=== PATIENT | female | born 1980 | race Caucasian/White ===

== ENCOUNTER 2017-09-09 22:48 | Emergency (ER) | payer MEDICAID ==
[~2017-09-09] VITALS: Ht 167.6 cm; Wt 52.2 kg
[2017-09-09 22:55] VITALS: BP 114/79
[2017-09-09] MEDS ORDERED: NKM (22:58)
--- NOTE | 2017-09-09 23:34 | Emergency Room Report ---
History of Present Illness General Chief Complaint: Gastrointestinal Illness Source: Patient Present Illness HPI 37-year-old female walked in with one day of painless dark stool associated with dizziness at rest and with ambulation Ate liang liver last night Denies other new meds recently Eyes nausea, vomiting, diarrhea denies gaviota blood in stool States within the last 2 months was also at [facility] for similar had endoscopy which showed ulcer. She took medication, not sure what it was. Not sure she tested positive for hpyloi. Did not have colonoscopy. no Use NSAIDs, not heavy alcohol drinker. no Previous abdominal or pelvic surgery Allergies: Coded Allergies: No Known Allergies (Unverified , 09/09/17) Patient History Past Medical History: other - PUD? Past Surgical History: none Pertinent Family History: none Social History: Denies: smoking, alcohol use, drug use Last Menstrual Period: Aug Now: No Immunizations: UTD Reviewed Nursing Documentation: PMH: Agreed, PSxH: Agreed Nursing Documentation-PMH Hx Gastrointestinal Problems: Yes - ULCER Review of Systems All Other Systems: negative except mentioned in HPI Physical Exam Vital Signs Date Time Temp Pulse Resp B/P (MAP) Pulse Ox O2 Delivery O2 Flow Rate FiO2 09/09/17 22:51 97.9 72 16 114/79 97 Room Air 97.9 Sp02 EP Interpretation: reviewed, normal General Appearance: normal inspection, well appearing, no apparent distress, alert, GCS 15, non-toxic Head: normocephalic, atraumatic Eyes: bilateral eye PERRL, bilateral eye EOMI ENT: normal ENT inspection, hearing grossly normal, normal pharynx, no angioedema, normal voice, TMs + canals normal, uvula midline, moist mucus membranes Neck: normal inspection, full range of motion, supple, thyroid normal, no meningismus, no bony tend Respiratory: normal inspection, lungs clear, normal breath sounds, no rhonchi, no respiratory distress, no retraction, no accessory muscle use, no wheezing, speaking full sentences Cardiovascular #1: regular rate, rhythm, no edema, no JVD, normal capillary refill Gastrointestinal: normal inspection, normal bowel sounds, non tender, soft, no mass, no peritonitis, non-distended, no guarding, no hernia, no pulsatile mass Rectal: other - Done with RN Kera sandoval. No gaviota bleeding. Negative occult stool sample done by in Genitourinary: no CVA tenderness Musculoskeletal: normal inspection, back normal, normal range of motion, no calf tenderness, pelvis stable, Ruben's Sign negative Neurologic: normal inspection, alert, oriented x3, responsive, mental health clinician III-XII nml as tested, motor strength/tone normal, cerebellar normal, normal gait, speech normal Psychiatric: normal inspection, judgement/insight normal, mood/affect normal, no suicidal/homicidal ideation, no delusions Skin: normal inspection, normal color, no rash Lymphatic: normal inspection, no adenopathy Medical Decision Making Diagnostic Impression: Primary Impression: Melena Additional Impression: Dizziness ER Course VSS, afebrile. Not tachycardia, hypotensive. Labs: H&H stable. Fecal occult negative on ED testing No metabolic abnormals, BUN normal Reassured patient Feels better after IVF hydration Gave copy of labs Advised PMD followup for GI referral for endoscopy if symptoms recur ER course: Patient has remained stable during ED stay. Disposition: Patient is to be discharged to home. Patient is instructed to follow up with their primary care doctor within 5 days. Patient is instructed to follow up with *specialist within 3 days. Strict return precautions discussed with patient such as fever, chills, worsening/severe pain, nausea, vomiting, which may indicate severe illness. Patient verbalizes understanding and agrees with plan. Please note that this Emergency Department Report was dictated using [employer]awk[employer] and shoe laborer technology software, occasionally this can lead to erroneous entry secondary to interpretation by the dictation equipment Rhythm Strip Diag. Results EP Interpretation: yes Rate: 64 Rhythm: NSR, no PVC's, no ectopy Last Vital Signs Date Time Temp Pulse Resp B/P (MAP) Pulse Ox O2 Delivery O2 Flow Rate FiO2 09/09/17 22:55 97.9 79 16 114/79 97 Room Air 97.9 Status: improved Disposition: HOME, SELF-CARE Referrals: [facility],REFERRING (PCP) ANABELL HUSTON M.D. Sep 09, 2017 23:34
[2017-09-09 23:39] LABS: BASOPHILS % (AUTO) 1.1 % (0.0-2.0); EOSINOPHILS % (AUTO) 0.7 % (0.0-3.0); HEMATOCRIT 42.9 % (37.0-47.0); HEMOGLOBIN 14.5 G/DL (12.0-16.0); LYMPHOCYTES % (AUTO) 47.1 % (20.0-45.0); MEAN CORPUSCULAR VOLUME 90 FL (80-99); MONOCYTES % (AUTO) 8.4 % (1.0-10.0); NEUTROPHILS % (AUTO) 42.8 % (45.0-75.0); PLATELET COUNT 229 K/UL (150-450); RED BLOOD COUNT 4.76 M/UL (4.20-5.40); RED CELL DISTRIBUTION WIDTH 11.8 % (11.6-14.8); WHITE BLOOD COUNT 6.3 K/UL (4.8-10.8)
[2017-09-09 23:45] LABS: ANION GAP 7 mmol/L (5-15); BLOOD UREA NITROGEN 16 mg/dL (7-18); CALCIUM 9.4 MG/DL (8.5-10.1); CARBON DIOXIDE 29 MMOL/L (21-32); CHLORIDE 101 MMOL/L (98-107); CREATININE 0.7 MG/DL (0.55-1.30); INR 0.9 (0.9-1.1); POTASSIUM 3.5 MMOL/L (3.5-5.1); SODIUM 137 MMOL/L (136-145)
[2017-09-09 23:50] LABS: ALANINE AMINOTRANSFERASE 52 U/L (12-78); ALKALINE PHOSPHATASE 74 U/L (46-116); ASPARTATE AMINO TRANSFERASE 28 U/L (15-37); BILIRUBIN,TOTAL 0.2 MG/DL (0.2-1.0)
[2017-09-10 00:15] VITALS: BP_SYST 110; BP_SYST 114; BP_DIAS 65; BP_DIAS 79
== END 2017-09-10 00:15 | disposition home or self-care (01) ==
LOC: EMR 23:08
DX: K92.1 Melena (principal); R42 Dizziness and giddiness; Z87.11 Personal history of peptic ulcer disease
CPT/HCPCS: 36415; 80053; 82270; 85025; 85610; 86850; 86900; 86901; 96374; 99284

== ENCOUNTER 2018-07-23 20:21 | Inpatient (IN) | payer MEDICAID ==
[~2018-07-23] VITALS: Ht 167.6 cm; Wt 59.0 kg
[~2018-07-23 20:21] MED LIST: NKM
[2018-07-23 20:25] VITALS: BP 120/75
[2018-07-23] MEDS ORDERED: Morphine Sulfate 4mg/ml Inj (IV/IM USE ONLY) IVP ONE (20:30)
[2018-07-23] MEDS ORDERED: Pantoprazole Inj IVP ONE (20:30)
[2018-07-23] MEDS ORDERED: Isovue-300 100ml vial INJ PRN (20:30)
--- NOTE | 2018-07-23 20:30 | Emergency Room Report ---
History of Present Illness General Chief Complaint: Abdominal Pain Source: Patient Present Illness HPI 38-year-old female, presenting with abdominal pain for the last 3 days, also black stool. Patient says that she's had this in the past, and she was told it was a bacteria. She was followed up with the doctor at [facility]. No complaining of itching abdominal pain, the last 2 days, sharp, bilateral lower quadrants. Has no history of any surgeries in the past. No vomiting no fever Allergies: Coded Allergies: No Known Allergies (Unverified , 09/09/17) Patient History Past Medical History: see triage record Past Surgical History: none Pertinent Family History: none Last Menstrual Period: 06/26/18 Now: No Reviewed Nursing Documentation: PMH: Agreed; PSxH: Agreed Nursing Documentation-PMH Past Medical History: No Stated History Hx Gastrointestinal Problems: Yes - ULCER Review of Systems All Other Systems: negative except mentioned in HPI Physical Exam Vital Signs Date Time Temp Pulse Resp B/P (MAP) Pulse Ox O2 Delivery O2 Flow Rate FiO2 07/23/18 20:10 98.2 60 18 123/76 99 Room Air Sp02 EP Interpretation: reviewed, normal General Appearance: alert, GCS 15, non-toxic, moderate distress Head: normocephalic, atraumatic Eyes: bilateral eye normal inspection, bilateral eye PERRL, bilateral eye EOMI ENT: normal ENT inspection, normal pharynx, normal voice, moist mucus membranes Neck: normal inspection, full range of motion, supple Respiratory: normal inspection, lungs clear, normal breath sounds, no respiratory distress, no retraction, no wheezing, speaking full sentences, chest symmetrical Cardiovascular #1: normal inspection, regular rate, rhythm, no edema, normal capillary refill Cardiovascular #2: 2+ radial (R), 2+ radial (L) Gastrointestinal: other - Bilateral lower quadrant tenderness without guarding or rigidity Musculoskeletal: normal inspection, back normal, normal range of motion, non- tender Neurologic: normal inspection, alert, oriented x3, responsive, motor strength/ tone normal, sensory intact, normal gait, speech normal Psychiatric: normal inspection, judgement/insight normal, memory normal Skin: normal inspection, normal color, no rash, warm/dry, well hydrated, normal turgor Medical Decision Making ER Course 38-year-old female with abdominal pain, also black stool Differential Diagnosis: Gastritis, gastroenteritis, peptic ulcer disease, inflammatory bowel disease, infectious diarrhea Plan: Basic labs, ua, Protonix, zofran, IVF CT abdopelvis ER course: rectal exam: dark brown stool guiac positive Signed out pt to Dr Light 38-year-old female presenting with abdominal pain and black stool, has been here for melena in the past last September, reportedly has an ulcer and was H. pylori positive in the past Pt pending CT scan please follow for final disposition Please note that this Emergency Department Report was dictated using Dataium[employer] conduit layer technology software, occasionally this can lead to erroneous entry secondary to interpretation by the dictation equipment Laboratory Tests Test 07/23/18 20:25 White Blood Count 6.5 K/UL (4.8-10.8) Red Blood Count 4.52 M/UL (4.20-5.40) Hemoglobin 13.5 G/DL (12.0-16.0) Hematocrit 40.2 % (37.0-47.0) Mean Corpuscular Volume 89 FL (80-99) Mean Corpuscular Hemoglobin 29.9 PG (27.0-31.0) Mean Corpuscular Hemoglobin Concent 33.6 G/DL (32.0-36.0) Red Cell Distribution Width 11.2 % (11.6-14.8) L Platelet Count 202 K/UL (150-450) Mean Platelet Volume 7.9 FL (6.5-10.1) Neutrophils (%) (Auto) 57.0 % (45.0-75.0) Lymphocytes (%) (Auto) 32.5 % (20.0-45.0) Monocytes (%) (Auto) 9.4 % (1.0-10.0) Eosinophils (%) (Auto) 0.3 % (0.0-3.0) Basophils (%) (Auto) 0.8 % (0.0-2.0) Prothrombin Time 10.9 SEC (9.30-11.50) Prothrombin Time INR 1.0 (0.9-1.1) PTT 26 SEC (23-33) Sodium Level 137 MMOL/L (136-145) Potassium Level 3.4 MMOL/L (3.5-5.1) L Chloride Level 102 MMOL/L (98-107) Carbon Dioxide Level 23 MMOL/L (21-32) Anion Gap 12 mmol/L (5-15) Blood Urea Nitrogen 8 mg/dL (7-18) Creatinine 0.7 MG/DL (0.55-1.30) Estimate Glomerular Filtration Rate > 60 mL/min (>60) Glucose Level 89 MG/DL (74-106) Calcium Level 9.5 MG/DL (8.5-10.1) Total Bilirubin 0.3 MG/DL (0.2-1.0) Aspartate Amino Transferase (AST) 17 U/L (15-37) Alanine Aminotransferase (ALT) 17 U/L (12-78) Alkaline Phosphatase 55 U/L (46-116) Total Protein 7.6 G/DL (6.4-8.2) Albumin 3.7 G/DL (3.4-5.0) Globulin 3.9 g/dL Albumin/Globulin Ratio 0.9 (1.0-2.7) L Lipase 114 U/L (73-393) Last Vital Signs Date Time Temp Pulse Resp B/P (MAP) Pulse Ox O2 Delivery O2 Flow Rate FiO2 07/23/18 20:10 98.2 60 18 123/76 99 Room Air Aleyda Hamlin M.D. Jul 23, 2018 20:30
[2018-07-23 20:53] LABS: BASOPHILS % (AUTO) 0.8 % (0.0-2.0); EOSINOPHILS % (AUTO) 0.3 % (0.0-3.0); HEMATOCRIT 40.2 % (37.0-47.0); HEMOGLOBIN 13.5 G/DL (12.0-16.0); LYMPHOCYTES % (AUTO) 32.5 % (20.0-45.0); MEAN CORPUSCULAR VOLUME 89 FL (80-99); MONOCYTES % (AUTO) 9.4 % (1.0-10.0); PLATELET COUNT 202 K/UL (150-450); RED BLOOD COUNT 4.52 M/UL (4.20-5.40); RED CELL DISTRIBUTION WIDTH 11.2 % (11.6-14.8); WHITE BLOOD COUNT 6.5 K/UL (4.8-10.8)
[2018-07-23 21:05] LABS: ANION GAP 12 mmol/L (5-15); BLOOD UREA NITROGEN 8 mg/dL (7-18); CALCIUM 9.5 MG/DL (8.5-10.1); CARBON DIOXIDE 23 MMOL/L (21-32); CHLORIDE 102 MMOL/L (98-107); CREATININE 0.7 MG/DL (0.55-1.30); POTASSIUM 3.4 MMOL/L (3.5-5.1); SODIUM 137 MMOL/L (136-145)
[2018-07-23 21:09] LABS: ALANINE AMINOTRANSFERASE 17 U/L (12-78); ALBUMIN 3.7 G/DL (3.4-5.0); ALBUMIN/GLOBULIN RATIO 0.9 (1.0-2.7); ALKALINE PHOSPHATASE 55 U/L (46-116); ASPARTATE AMINO TRANSFERASE 17 U/L (15-37); BILIRUBIN,TOTAL 0.3 MG/DL (0.2-1.0)
--- NOTE | 2018-07-23 21:24 | NUR ---
ED Nurse Note: Received report from Patrick/ RN. Pt is A/O X4, Need urine sample and CT OF Abdomen.
--- NOTE | 2018-07-23 21:49 | NUR ---
ED Nurse Note: Urine sample sent to Lab.
[2018-07-23 21:58] LABS: APPEARANCE,URINE CLEAR; BILIRUBIN, URINE NEGATIVE (NEGATIVE); COLOR,URINE PALE YELLOW; GLUCOSE, URINE (UA) NEGATIVE (NEGATIVE); KETONES,URINE 4+ (NEGATIVE); LEUKOCYTE ESTERASE ,URINE 1+ (NEGATIVE); NITRITE,URINE NEGATIVE (NEGATIVE); PH,URINE 7 (4.5-8.0); PROTEIN,URINE NEGATIVE (NEGATIVE); UROBILINOGEN,URINE NORMAL MG/DL (0.0-1.0)
--- NOTE | 2018-07-23 22:08 | NUR ---
ED Nurse Note: Pt is sent down for CT.
--- NOTE | 2018-07-23 22:21 | NUR ---
ED Nurse Note: Pt return from CT.
--- NOTE | 2018-07-23 23:31 | Emergency Room Report ---
History of Present Illness General Chief Complaint: Abdominal Pain Source: Patient Present Illness Allergies: Coded Allergies: No Known Allergies (Unverified , 09/09/17) Patient History Last Menstrual Period: 06/26/18 Now: No Nursing Documentation-[facility] Past Medical History: No Stated History Hx Gastrointestinal Problems: Yes - ULCER Physical Exam Vital Signs Date Time Temp Pulse Resp B/P (MAP) Pulse Ox O2 Delivery O2 Flow Rate FiO2 07/23/18 20:10 98.2 60 18 123/76 99 Room Air Medical Decision Making Diagnostic Impression: Primary Impression: Abdominal pain ER Course Please refer to the initial note for the history exam and presentation Patient's blood work is at baseline levels patient CT is read as no acute pathology There was a 2.2 cm cyst on the left ovary Reviewing the workup and the findings with the patient she provides multiple Inputs including recent visits to [facility] with lower abdominal pain she reports that at the end of June she had taken some pills for ovulation Which had caused increased lower pelvic pain Patient reports that after taking medications she has now had increased epigastric pain Reports seeing her primary physician who did not prescribe her any medications Patient reports multiple episodes of epigastric pain which have not been resolved with [id number] medication At this time patient reports that she does not have anyone to take her home does not feel comfortable going home at this time, and therefore the patient continued with her inpatient Admission for further evaluation and final disposition Labs Test 07/23/18 20:25 07/23/18 21:50 White Blood Count 6.5 K/UL (4.8-10.8) Red Blood Count 4.52 M/UL (4.20-5.40) Hemoglobin 13.5 G/DL (12.0-16.0) Hematocrit 40.2 % (37.0-47.0) Mean Corpuscular Volume 89 FL (80-99) Mean Corpuscular Hemoglobin 29.9 PG (27.0-31.0) Mean Corpuscular Hemoglobin Concent 33.6 G/DL (32.0-36.0) Red Cell Distribution Width 11.2 % (11.6-14.8) Platelet Count 202 K/UL (150-450) Mean Platelet Volume 7.9 FL (6.5-10.1) Neutrophils (%) (Auto) 57.0 % (45.0-75.0) Lymphocytes (%) (Auto) 32.5 % (20.0-45.0) Monocytes (%) (Auto) 9.4 % (1.0-10.0) Eosinophils (%) (Auto) 0.3 % (0.0-3.0) Basophils (%) (Auto) 0.8 % (0.0-2.0) Prothrombin Time 10.9 SEC (9.30-11.50) Prothromb Time International Ratio 1.0 (0.9-1.1) Activated Partial Thromboplast Time 26 SEC (23-33) Sodium Level 137 MMOL/L (136-145) Potassium Level 3.4 MMOL/L (3.5-5.1) Chloride Level 102 MMOL/L (98-107) Carbon Dioxide Level 23 MMOL/L (21-32) Anion Gap 12 mmol/L (5-15) Blood Urea Nitrogen 8 mg/dL (7-18) Creatinine 0.7 MG/DL (0.55-1.30) Estimat Glomerular Filtration Rate > 60 mL/min (>60) Glucose Level 89 MG/DL (74-106) Calcium Level 9.5 MG/DL (8.5-10.1) Total Bilirubin 0.3 MG/DL (0.2-1.0) Aspartate Amino Transf (AST/SGOT) 17 U/L (15-37) Alanine Aminotransferase (ALT/SGPT) 17 U/L (12-78) Alkaline Phosphatase 55 U/L (46-116) Total Protein 7.6 G/DL (6.4-8.2) Albumin 3.7 G/DL (3.4-5.0) Globulin 3.9 g/dL Albumin/Globulin Ratio 0.9 (1.0-2.7) Lipase 114 U/L (73-393) Urine Color Pale yellow Urine Appearance Clear Urine pH 7 (4.5-8.0) Urine Specific [place] 1.005 (1.005-1.035) Urine Protein Negative (NEGATIVE) Urine Glucose (UA) Negative (NEGATIVE) Urine Ketones 4+ (NEGATIVE) Urine Blood Negative (NEGATIVE) Urine Nitrite Negative (NEGATIVE) Urine Bilirubin Negative (NEGATIVE) Urine Urobilinogen Normal MG/DL (0.0-1.0) Urine Leukocyte Esterase 1+ (NEGATIVE) Urine RBC 0-2 /HPF (0 - 2) Urine WBC 0-2 /HPF (0 - 2) Urine Squamous Epithelial Cells Few /LPF (NONE/OCC) Urine Bacteria Few /HPF (NONE) Urine HCG, Qualitative Negative (NEGATIVE) CT/MRI/US Diagnostic Results CT/MRI/US Diagnostic Results : Impression CT abdomen pelvis: 2.2 cm dominant follicle or small cyst left ovary no other acute pathology Last Vital Signs Date Time Temp Pulse Resp B/P (MAP) Pulse Ox O2 Delivery O2 Flow Rate FiO2 07/23/18 20:25 98.2 55 18 120/75 99 Room Air Status: improved Disposition: ADMITTED INPATIENT Condition: Serious Referrals: [facility],REFERR[facility] (PCP) Cristine Light DO Jul 23, 2018 23:30
[2018-07-24] MEDS ORDERED: LORazepam Inj 2mg/ml 1ml IV ONE
[2018-07-24 00:15] VITALS: BP 92/56
--- NOTE | 2018-07-24 00:15 | NUR ---
NURSE NOTES: Pt came up to unit via gurney w/belongings accounted for. Pt A&Ox4, VSS, and in no apparent distress at this time. IV site intact/asymptomatic; skin intact; and bowel sounds hyperactive on auscultation. Will review MD admission orders and continue to monitor.
--- NOTE | 2018-07-24 00:20 | NUR ---
TRANSFER TO FLOOR: Patient transferred to 3E/315 as ordered . Report given to Justice/RN . Belongings sent with Pt and re-checked with RN. Pt is A/O X4. VSS.
[2018-07-24] MEDS: 1/2NS w/KCl 20mEq 1000ml 1,000 ML IV SCH ×3 (01:22→21:23)
[2018-07-24 04:00] VITALS: BP 107/67
--- NOTE | 2018-07-24 07:08 | NUR ---
HAND-OFF: Report given to SATNAM Rocha.
--- NOTE | 2018-07-24 07:39 | NUR ---
NURSE NOTES: AWAKE/ALERT. PAIN SCALE 4/10. IN NO ACUTE DISTRESS.
[2018-07-24 08:00] VITALS: BP 104/61
[2018-07-24 08:06] LABS: BASOPHILS % (AUTO) 1.2 % (0.0-2.0); EOSINOPHILS % (AUTO) 0.9 % (0.0-3.0); HEMATOCRIT 37.3 % (37.0-47.0); HEMOGLOBIN 12.5 G/DL (12.0-16.0); LYMPHOCYTES % (AUTO) 47.9 % (20.0-45.0); MEAN CORPUSCULAR VOLUME 90 FL (80-99); MONOCYTES % (AUTO) 11.4 % (1.0-10.0); NEUTROPHILS % (AUTO) 38.7 % (45.0-75.0); PLATELET COUNT 174 K/UL (150-450); RED BLOOD COUNT 4.16 M/UL (4.20-5.40); RED CELL DISTRIBUTION WIDTH 11.3 % (11.6-14.8); WHITE BLOOD COUNT 4.6 K/UL (4.8-10.8)
[2018-07-24 08:37] LABS: ALANINE AMINOTRANSFERASE 16 U/L (12-78); ALBUMIN/GLOBULIN RATIO 0.9 (1.0-2.7); ALKALINE PHOSPHATASE 47 U/L (46-116); ANION GAP 6 mmol/L (5-15); ASPARTATE AMINO TRANSFERASE 14 U/L (15-37); BILIRUBIN,TOTAL 0.3 MG/DL (0.2-1.0); BLOOD UREA NITROGEN 7 mg/dL (7-18); CALCIUM 8.6 MG/DL (8.5-10.1); CARBON DIOXIDE 25 MMOL/L (21-32); CHLORIDE 108 MMOL/L (98-107); CREATININE 0.8 MG/DL (0.55-1.30); POTASSIUM 3.9 MMOL/L (3.5-5.1); SODIUM 139 MMOL/L (136-145)
--- NOTE | 2018-07-24 09:22 | Diagnostic Imaging Report ---
Indication: Abdominal pain Technique: Continuous helical transaxial imaging of the abdomen and pelvis was obtained from the lung bases to the pubic symphysis during intravenous contrast administration. Coronal 2-D reformats were also obtained. Study obtained in a Siemens sensation [address] Automatic Exposure Control was utilized. Total Dose length Product (DLP): 650.[address] Dose Index Volume (CTDIvol): 10.08,7.38 mGy Comparison: None Findings: There is mild small bowel dilatation of fluid-filled loops. Consider mild enteritis. There is a 2 cm left ovarian cyst present. The lung bases are clear. The liver, spleen and other solid organs appear normal. There is no hydronephrosis. Gallbladder is unremarkable. The appendix is normal. Pancreas is unremarkable. IMPRESSION: Possible mild enteritis. Correlate clinically. 2 cm left ovarian cyst. Normal appendix The CT scanner at [facility] is accredited by the [employer] and the scans are performed using dose optimization techniques as appropriate to a performed exam including Automatic Exposure control.
--- NOTE | 2018-07-24 11:06 | GI Initial Consult Note ---
History of Present Illness General Date patient seen: Jul 24, 2018 Time patient seen: 10:57 Reason for Hospitalization: Abdominal Pain Referring physician: MARCELLA BRYAN Reason for Consultation: ABDOMINAL PAIN Present Illness HPI 38-year-old female, presenting with abdominal pain for the last 3 days, also black stool. Patient says that she's had this in the past, and she was told it was a bacteria. She was followed up with the doctor at [facility]. No complaining of itching abdominal pain, the last 2 days, sharp, bilateral lower quadrants. Has no history of any surgeries in the past. No vomiting no fever GI consulted for abdominal pain. Pt seen, awake A&Ox4 c/o of severe abdominal pain 10/ x 4 days. Has epigastric, LLQ abdominal tenderness to palpation. Reported black stools. Denied diarrhea. Had N/V, denied any hematemesis or coffee grounds. Denied any recent travels or changes in dietary habits. Pt reported history of ulcer EGD in 2014 with H. Pylori positive s/p treatment. Utox negative. Labs reviewed unremarkable. Home Meds Reported Medications No Known Medications* (NKM - No Known Medications*) ., 0 ., 0 Refills 07/23/18 No Known Medications* (NKM - No Known Medications*) ., 0 ., 0 Refills 09/09/17 Med list reviewed/reconciled: Yes Allergies: Coded Allergies: No Known Allergies (Unverified , 09/09/17) Patient History History Provided By: Patient, Medical Record PMH Narrative Past Medical History: see triage record Past Surgical History: none Pertinent Family History: none Last Menstrual Period: 06/26/18 Now: No Reviewed Nursing Documentation: PMH: Agreed; PSxH: Agreed Past Medical History: No Stated History Hx Gastrointestinal Problems: Yes - ULCER Social History: Denies: smoking, alcohol use, drug use, other Review of Systems All Other Systems: negative except mentioned in HPI Physical Exam Vital Signs Date Time Temp Pulse Resp B/P (MAP) Pulse Ox O2 Delivery O2 Flow Rate FiO2 07/23/18 20:10 98.2 60 18 123/76 99 Room Air Sp02 EP Interpretation: reviewed, normal Labs Laboratory Tests Test 07/23/18 20:25 07/23/18 21:50 07/24/18 07:23 White Blood Count 6.5 K/UL (4.8-10.8) 4.6 K/UL (4.8-10.8) L Red Blood Count 4.52 M/UL (4.20-5.40) 4.16 M/UL (4.20-5.40) L Hemoglobin 13.5 G/DL (12.0-16.0) 12.5 G/DL (12.0-16.0) Hematocrit 40.2 % (37.0-47.0) 37.3 % (37.0-47.0) Mean Corpuscular Volume 89 FL (80-99) 90 FL (80-99) Mean Corpuscular Hemoglobin 29.9 PG (27.0-31.0) 30.0 PG (27.0-31.0) Mean Corpuscular Hemoglobin Concent 33.6 G/DL (32.0-36.0) 33.5 G/DL (32.0-36.0) Red Cell Distribution Width 11.2 % (11.6-14.8) L 11.3 % (11.6-14.8) L Platelet Count 202 K/UL (150-450) 174 K/UL (150-450) Mean Platelet Volume 7.9 FL (6.5-10.1) 9.2 FL (6.5-10.1) Neutrophils (%) (Auto) 57.0 % (45.0-75.0) 38.7 % (45.0-75.0) L Lymphocytes (%) (Auto) 32.5 % (20.0-45.0) 47.9 % (20.0-45.0) H Monocytes (%) (Auto) 9.4 % (1.0-10.0) 11.4 % (1.0-10.0) H Eosinophils (%) (Auto) 0.3 % (0.0-3.0) 0.9 % (0.0-3.0) Basophils (%) (Auto) 0.8 % (0.0-2.0) 1.2 % (0.0-2.0) Prothrombin Time 10.9 SEC (9.30-11.50) Prothromb Time International Ratio 1.0 (0.9-1.1) Activated Partial Thromboplast Time 26 SEC (23-33) Sodium Level 137 MMOL/L (136-145) 139 MMOL/L (136-145) Potassium Level 3.4 MMOL/L (3.5-5.1) L 3.9 MMOL/L (3.5-5.1) Chloride Level 102 MMOL/L (98-107) 108 MMOL/L (98-107) H Carbon Dioxide Level 23 MMOL/L (21-32) 25 MMOL/L (21-32) Anion Gap 12 mmol/L (5-15) 6 mmol/L (5-15) Blood Urea Nitrogen 8 mg/dL (7-18) 7 mg/dL (7-18) Creatinine 0.7 MG/DL (0.55-1.30) 0.8 MG/DL (0.55-1.30) Estimat Glomerular Filtration Rate > 60 mL/min (>60) > 60 mL/min (>60) Glucose Level 89 MG/DL (74-106) 78 MG/DL (74-106) Calcium Level 9.5 MG/DL (8.5-10.1) 8.6 MG/DL (8.5-10.1) Total Bilirubin 0.3 MG/DL (0.2-1.0) 0.3 MG/DL (0.2-1.0) Aspartate Amino Transf (AST/SGOT) 17 U/L (15-37) 14 U/L (15-37) L Alanine Aminotransferase (ALT/SGPT) 17 U/L (12-78) 16 U/L (12-78) Alkaline Phosphatase 55 U/L (46-116) 47 U/L (46-116) Total Protein 7.6 G/DL (6.4-8.2) 6.4 G/DL (6.4-8.2) Albumin 3.7 G/DL (3.4-5.0) 3.0 G/DL (3.4-5.0) L Globulin 3.9 g/dL 3.4 g/dL Albumin/Globulin Ratio 0.9 (1.0-2.7) L 0.9 (1.0-2.7) L Lipase 114 U/L (73-393) Urine Color Pale yellow Urine Appearance Clear Urine pH 7 (4.5-8.0) Urine Specific [place] 1.005 (1.005-1.035) Urine Protein Negative (NEGATIVE) Urine Glucose (UA) Negative (NEGATIVE) Urine Ketones 4+ (NEGATIVE) H Urine Blood Negative (NEGATIVE) Urine Nitrite Negative (NEGATIVE) Urine Bilirubin Negative (NEGATIVE) Urine Urobilinogen Normal MG/DL (0.0-1.0) Urine Leukocyte Esterase 1+ (NEGATIVE) H Urine RBC 0-2 /HPF (0 - 2) Urine WBC 0-2 /HPF (0 - 2) Urine Squamous Epithelial Cells Few /LPF (NONE/OCC) Urine Bacteria Few /HPF (NONE) Urine HCG, Qualitative Negative (NEGATIVE) Urine Opiates Screen Negative (NEGATIVE) Urine Barbiturates Screen Negative (NEGATIVE) Phencyclidine (PCP) Screen Negative (NEGATIVE) Urine Amphetamines Screen Negative (NEGATIVE) Urine Benzodiazepines Screen Negative (NEGATIVE) Urine Cocaine Screen Negative (NEGATIVE) Urine Marijuana (THC) Screen Negative (NEGATIVE) General Appearance: well appearing, no apparent distress, alert Head: normocephalic EENT: PERRL/EOMI, normal ENT inspection Neck: supple Respiratory: normal breath sounds, no respiratory distress Cardiovascular: normal rate Gastrointestinal: normal inspection, non tender, soft, normal bowel sounds, non -distended Rectal: deferred Genitourinary: no CVA tenderness Musculoskeletal: normal inspection, back normal Neurologic: normal inspection, alert, oriented x3, responsive Psychiatric: normal inspection, judgement/insight normal, memory normal Skin: normal inspection, normal color, no rash, warm/dry, palpation normal, well hydrated Lymphatic: normal inspection, no adenopathy Current Medications Current Medications Medications (Trade) Dose Ordered Sig/Jean Route PRN Reason Start Time Stop Time Status Last Admin Dose Admin Acetaminophen (Tylenol) 650 mg Q4H PRN ORAL For Pain 07/24/18 00:45 08/23/18 00:44 Al Hydroxide/Mg Hydroxide (Mylanta) 30 ml EVERY 4 HOURS PRN ORAL Abdominal cramps 07/24/18 00:45 08/23/18 00:44 Pantoprazole (Protonix) 40 mg ACBREAKFAST ORAL 07/24/18 06:30 08/23/18 06:29 07/24/18 06:11 Sodium 1,000 ml @ 75 mls/hr [id number] IV 07/24/18 00:45 08/23/18 00:44 07/24/18 01:22 GI: Plan Problems: (1) Ulcer (2) PUD (peptic ulcer disease) (3) Melena (4) Enteritis (5) Abdominal pain Plan EGD scheduled for today. maintain NPO + IVFs will follow with additional recommendations Discussed with Dr. Ordoñez. Thank you for this patient referral, we will follow. The patient was seen and examined at bedside and all new and available data was reviewed in the patients chart. I agree with the above findings, impression and plan. (Patient seen earlier today. Signature stamp does not reflect patient encounter time.). - MD Kendra JuaresDignity Health Mercy Gilbert Medical CenterEvgeny CONFIGURATION MANAGEMENT CONSULTANT Jul 24, 2018 11:06
[2018-07-24 12:00] VITALS: BP 99/83
--- NOTE | 2018-07-24 12:03 | Pre-Procedure Note/Attestation ---
Pre-Procedure Note/Attestation Complete Prior to Procedure Planned Procedure: not applicable Procedure Narrative: egd Indications for Procedure Pre-Operative Diagnosis: abd pain Attestation I attest that I discussed the nature of the procedure; its benefits; risks and complications; and alternatives (and the risks and benefits of such alternatives ), prior to the procedure, with the patient (or the patient's legal traffic representative). I attest that, if there was a reasonable possibility of needing a blood transfusion, the patient (or the patient's legal traffic representative) was given the [facility] standardized written summary, pursuant to the Damir Renita Blood Safety Act ([place] Health and Safety Code # 1645, as amended). I attest that I re-evaluated the patient just prior to the surgery and that there has been no change in the patient's H&P, except as documented below: Pernell Ordoñez MD Jul 24, 2018 12:03
[2018-07-24] MEDS: Morphine Sulfate 4mg/ml Inj (IV/IM USE ONLY) IVP PRN ×2 (14:50→23:49)
[2018-07-24 16:00] VITALS: BP 108/62
--- NOTE | 2018-07-24 16:13 | NUR ---
CASE MANAGEMENT: REVIEW 38/F BIBA FROM HOME CC: ABD PAIN SI: GI BLEED T 98.2 HR 54 RR 18 BP 120/75 SAT 96% ROOM AIR K 3.4 IS: PROTONIX IV X1 MORPHINE IV X1 ZOFRAN IV X1 ATIVAN IV X1 PEPCID IV X1 INTERQUAL CRITERIA MET: PATIENT ADMITTED TO MED/SURG UNIT 07/23/2018 DCP: PATIENT IS FROM HOME CASE MANAGEMENT: REVIEW SI: GI BLEED EGD 07/24 T 98.0 HR 54 RR 18 BP 92/56 SAT 96% ROOM AIR WBC 4.6 AST 14 IS: MORPHINE 2MG IV Q4HR PRN PROTONIX PO QD NS IVF @ 75ML/HR NPO MED/SURG STATUS DCP: PATIENT IS FROM HOME
--- NOTE | 2018-07-24 16:34 | Consultation ---
Consult Note Consult Note GYNECOLOGY CONSULT NOTE CC: Ovarian cyst HPI: Patient is a 38yo G0 who was admitted for abdominal pain. She took Clomid on Cycle day 2 (LMP 06/26) for 5 days however did not have intercourse after ovulation induction. Her pain began on 07/03 or 07/04, was severe at times, prompting her to go to the ER. She was seen at [facility] ED for lower abdominal pain on 07/13/18, was diagnosed with and treated for cervicitis (CTX and Azithro) and discharged home. Patient reports that her lower abdominal pain improved (currently 4-11/15) but she then developed upper GI pain and was admitted here for treatment and evaluation. During evaluation an incidental left ovarian cyst was noted on imaging, and I have been consulted regarding this finding. Of note, her ultrasound at [facility] on 07/13 was normal. She denies fevers, reports some nausea, no vomiting. PMH: - Hx of ulcer diagnosed in 2014 PSH: - Denies Meds: - None Allergies: - NKDA OBHx: - G0 GYNHx: - LMP 06/26, menses regular - No hx abnl Pap, cysts, fibroids, or STI SocHx: - Lives alone, has boyfriend. Owns a [employer]. Denies T/E/D FamHx: - Father with GA, living - Paternal grandmother of breast CA at 55yo, diagnosed at 50 Vitals: Tmax 98.1F, HR 53-99, BP 99-107/61-83, RR 18, O2 98% RA Exam: Gen: NAD, A&O x4 HEENT: MMM, OP clear Neck: No thyromegaly CV: No tachycardia Pulm: No increased work of breathing Abd: Soft, generalized tenderness that is non-specific, although she appears to be most tender on the right of her umbilicus and in her epigastric area. No lower abdominal tenderness. No rebound but voluntary guarding present and is distractable. Pelvic: No blood at perineum, internal exam deferred Ext: No calf TTP Skin: warm, dry, good cap refill LABS: Test 07/23/18 20:25 07/23/18 21:50 07/24/18 07:23 White Blood Count 6.5 K/UL (4.8-10.8) 4.6 K/UL (4.8-10.8) Red Blood Count 4.52 M/UL (4.20-5.40) 4.16 M/UL (4.20-5.40) Hemoglobin 13.5 G/DL (12.0-16.0) 12.5 G/DL (12.0-16.0) Hematocrit 40.2 % (37.0-47.0) 37.3 % (37.0-47.0) Mean Corpuscular Volume 89 FL (80-99) 90 FL (80-99) Mean Corpuscular Hemoglobin 29.9 PG (27.0-31.0) 30.0 PG (27.0-31.0) Mean Corpuscular Hemoglobin Concent 33.6 G/DL (32.0-36.0) 33.5 G/DL (32.0-36.0) Red Cell Distribution Width 11.2 % (11.6-14.8) 11.3 % (11.6-14.8) Platelet Count 202 K/UL (150-450) 174 K/UL (150-450) Mean Platelet Volume 7.9 FL (6.5-10.1) 9.2 FL (6.5-10.1) Neutrophils (%) (Auto) 57.0 % (45.0-75.0) 38.7 % (45.0-75.0) Lymphocytes (%) (Auto) 32.5 % (20.0-45.0) 47.9 % (20.0-45.0) Monocytes (%) (Auto) 9.4 % (1.0-10.0) 11.4 % (1.0-10.0) Eosinophils (%) (Auto) 0.3 % (0.0-3.0) 0.9 % (0.0-3.0) Basophils (%) (Auto) 0.8 % (0.0-2.0) 1.2 % (0.0-2.0) Prothrombin Time 10.9 SEC (9.30-11.50) Prothromb Time International Ratio 1.0 (0.9-1.1) Activated Partial Thromboplast Time 26 SEC (23-33) Sodium Level 137 MMOL/L (136-145) 139 MMOL/L (136-145) Potassium Level 3.4 MMOL/L (3.5-5.1) 3.9 MMOL/L (3.5-5.1) Chloride Level 102 MMOL/L (98-107) 108 MMOL/L (98-107) Carbon Dioxide Level 23 MMOL/L (21-32) 25 MMOL/L (21-32) Anion Gap 12 mmol/L (5-15) 6 mmol/L (5-15) Blood Urea Nitrogen 8 mg/dL (7-18) 7 mg/dL (7-18) Creatinine 0.7 MG/DL (0.55-1.30) 0.8 MG/DL (0.55-1.30) Estimat Glomerular Filtration Rate > 60 mL/min (>60) > 60 mL/min (>60) Glucose Level 89 MG/DL (74-106) 78 MG/DL (74-106) Calcium Level 9.5 MG/DL (8.5-10.1) 8.6 MG/DL (8.5-10.1) Total Bilirubin 0.3 MG/DL (0.2-1.0) 0.3 MG/DL (0.2-1.0) Aspartate Amino Transf (AST/SGOT) 17 U/L (15-37) 14 U/L (15-37) Alanine Aminotransferase (ALT/SGPT) 17 U/L (12-78) 16 U/L (12-78) Alkaline Phosphatase 55 U/L (46-116) 47 U/L (46-116) Total Protein 7.6 G/DL (6.4-8.2) 6.4 G/DL (6.4-8.2) Albumin 3.7 G/DL (3.4-5.0) 3.0 G/DL (3.4-5.0) Globulin 3.9 g/dL 3.4 g/dL Albumin/Globulin Ratio 0.9 (1.0-2.7) 0.9 (1.0-2.7) Lipase 114 U/L (73-393) Urine Color Pale yellow Urine Appearance Clear Urine pH 7 (4.5-8.0) Urine Specific [place] 1.005 (1.005-1.035) Urine Protein Negative (NEGATIVE) Urine Glucose (UA) Negative (NEGATIVE) Urine Ketones 4+ (NEGATIVE) Urine Blood Negative (NEGATIVE) Urine Nitrite Negative (NEGATIVE) Urine Bilirubin Negative (NEGATIVE) Urine Urobilinogen Normal MG/DL (0.0-1.0) Urine Leukocyte Esterase 1+ (NEGATIVE) Urine RBC 0-2 /HPF (0 - 2) Urine WBC 0-2 /HPF (0 - 2) Urine Squamous Epithelial Cells Few /LPF (NONE/OCC) Urine Bacteria Few /HPF (NONE) Urine HCG, Qualitative Negative (NEGATIVE) Urine Opiates Screen Negative (NEGATIVE) Urine Barbiturates Screen Negative (NEGATIVE) Phencyclidine (PCP) Screen Negative (NEGATIVE) Urine Amphetamines Screen Negative (NEGATIVE) Urine Benzodiazepines Screen Negative (NEGATIVE) Urine Cocaine Screen Negative (NEGATIVE) Urine Marijuana (THC) Screen Negative (NEGATIVE) IMAGING: CT A/P Findings: There is mild small bowel dilatation of fluid-filled loops. Consider mild enteritis. There is a 2 cm left ovarian cyst present. The lung bases are clear. The liver, spleen and other solid organs appear normal. There is no hydronephrosis. Gallbladder is unremarkable. The appendix is normal. Pancreas is unremarkable. IMPRESSION: - Possible mild enteritis. Correlate clinically. - 2 cm left ovarian cyst. - Normal appendix Assessment/Plan ASSESSMENT/PLAN: 38yo G0 with generalized abdominal pain and incidental finding of left ovarian cyst - Left ovarian cyst, likely a dominant follicle and a normal physiologic finding ; however in light of her pain I recommend a Pelvic ultrasound to evaluate quality of cyst (given that ultrasound is the best modality to evaluate ovarian pathology) - Patient is afebrile and has no leukocytosis - Recently treated for cervicitis, no indication for additional antibiotic therapy at this time - No rebound on exam; no evidence of acute abdomen - No evidence of appendicitis on imaging - Patient is undergoing evaluation for upper GI pain; endoscopy pending - Continue pain management per primary team Thank you for this interesting consult Signed: MD Tawana Argueta Carla M.D. Jul 24, 2018 16:33
--- NOTE | 2018-07-24 19:23 | NUR ---
HAND-OFF: Report given to Tahira CONNELL RN.
--- NOTE | 2018-07-24 19:24 | NUR ---
NURSE NOTES: RESTING . IN NO APPARENT DISTRESS.
--- NOTE | 2018-07-24 19:30 | NUR ---
NURSE NOTES: Received patient awake in bed, alert and oriented x4, no complaint of moderate pain at this time. Instructed the use of call light. Call light and needs in reach. Bed in lowest position and lock engaged. Will continue to monitor. lead pharmacy technician at bedside.
[2018-07-24 20:00] VITALS: BP 91/52
--- NOTE | 2018-07-24 21:30 | NUR ---
NURSE NOTES: Patient was in 4-5/10 pain. She said, she doesn't need pain medication at this time but will let the nurse know if she needs it. Made sure call light is in reach. Will continue to monitor.
[2018-07-25] VITALS (12 sets, daily range): BP systolic 98–119; BP diastolic 57–89
--- NOTE | 2018-07-25 00:11 | NUR ---
NURSE NOTES: IV was beeping. Checked IV access on the left forearm, no signs of infiltration, but will continue to monitor. IVF was reconnected on the left AC and kerlix was applied to avoid bending the site.
--- NOTE | 2018-07-25 07:17 | NUR ---
HAND-OFF: Report given to SATNAM Rocha.
--- NOTE | 2018-07-25 07:30 | NUR ---
NURSE NOTES: AWAKE/ALERT. PAIN SCALE 7/10. MEDICATED WITH MS 2MG IV ORDERED. NPO MAINTAINED FOR EGD. IN NO ACUTE DISTRESS.
[2018-07-25] MEDS: Morphine Sulfate 4mg/ml Inj (IV/IM USE ONLY) IVP PRN ×2 (08:02→14:57)
[2018-07-25] MEDS ORDERED: Midazolam 2mg/2ml Inj IVP PRN (09:45)
[2018-07-25] MEDS ORDERED: Atropine Inj 1mg/10ml Syr IV PRN (09:45)
[2018-07-25] MEDS ORDERED: fentaNYL 100 mcg/2 mL IV PRN (09:45)
[2018-07-25] MEDS ORDERED: DiphenhydrAMINE 50mg/ml Inj IVP PRN (09:45)
--- NOTE | 2018-07-25 09:55 | Consultation ---
History of Present Illness General Date patient seen: Jul 25, 2018 Chief Complaint: Referring physician: Reason for Consultation: Present Illness Allergies: Coded Allergies: No Known Allergies (Unverified , 09/09/17) Medication History Scheduled No Known Medications* (NKM - No Known Medications*), 0 ., (Reported) No Known Medications* (NKM - No Known Medications*), 0 ., (Reported) Patient History Healthcare decision maker Resuscitation status Full Code Advanced Directive on File Physical Exam Last 24 Hour Vital Signs Date Time Temp Pulse Resp B/P (MAP) Pulse Ox O2 Delivery O2 Flow Rate FiO2 07/25/18 08:59 Room Air 07/25/18 08:32 97.3 07/25/18 08:00 98.4 59 19 111/64 (80) 99 07/25/18 04:00 97.3 65 17 98/65 (76) 100 07/25/18 00:00 98.3 52 19 103/69 (80) 99 07/24/18 20:41 Room Air 07/24/18 20:00 98.5 69 17 91/52 (65) 99 07/24/18 16:00 98.3 63 18 108/62 (77) 98 07/24/18 12:00 97.8 53 18 99/83 (88) 98 Intake and Output 07/24/18 07/25/18 18:59 06:59 Intake Total 2300 ml 825 ml Balance 2300 ml 825 ml Intake Oral 1400 ml IV Total 900 ml 825 ml # Voids 3 2 Height (Feet): 5 Height (Inches): 6.00 Weight (Pounds): 130 Medications Current Medications Medications (Trade) Dose Ordered Sig/Jean Route PRN Reason Start Time Stop Time Status Last Admin Dose Admin Acetaminophen (Tylenol) 650 mg Q4H PRN ORAL For Pain 07/24/18 00:45 08/23/18 00:44 Al Hydroxide/Mg Hydroxide (Mylanta) 15 ml Q1H PRN ORAL gi upset 07/25/18 09:45 07/25/18 18:00 Al Hydroxide/Mg Hydroxide (Mylanta) 30 ml EVERY 4 HOURS PRN ORAL Abdominal cramps 07/24/18 00:45 08/23/18 00:44 Atropine Sulfate (Atropine) 0.5 mg Q5M PRN IV bpm less than 45 07/25/18 09:45 07/25/18 18:00 Diphenhydramine HCl (Benadryl) 25 mg Q15M PRN IVP Itching 07/25/18 09:45 07/25/18 18:00 Fentanyl Citrate (Sublimaze 100 mcg/2 mL) 25 mcg Q10M PRN IV Moderate Pain (Pain Scale 4-6) 07/25/18 09:45 07/25/18 18:00 Hydralazine HCl (Apresoline) 5 mg Q30M PRN IV SBP>160 OR___/DBP>90 OR___ 07/25/18 09:45 07/25/18 18:00 Midazolam HCl (Versed 2mg/2ml vial) 1 mg Q15M PRN IVP For Anxiety 07/25/18 09:45 07/25/18 18:00 Morphine Sulfate (Morphine Sulfate) 2 mg Q4H PRN IVP For Pain 07/24/18 14:45 07/31/18 14:44 07/25/18 08:02 Ondansetron HCl (Zofran) 4 mg Q1H PRN IVP Nausea & Vomiting 07/25/18 09:45 07/25/18 18:00 Pantoprazole (Protonix) 40 mg ACBREAKFAST ORAL 07/24/18 06:30 08/23/18 06:29 07/25/18 05:39 Sodium 1,000 ml @ 75 mls/hr [id number] IV 07/24/18 00:45 08/23/18 00:44 07/24/18 21:23 Sodium Chloride 1,000 ml @ 10 mls/hr Q24H IVLG 07/25/18 09:32 07/25/18 11:31 Assessment/Plan Assessment/Plan (1) Abdominal and Pelvic pain (2) Peptic Ulcer disease (3) Ovarian Cyst seen dictated. Darin Nunez Jul 25, 2018 09:55
--- NOTE | 2018-07-25 10:45 | History and Physical Report ---
DATE OF ADMISSION: 07/23/2018 NOTE: POOR AUDIO QUALITY HISTORY OF PRESENT ILLNESS: The patient is a 38-year-old female who comes in with abdominal pain and low potassium as well. Her symptoms have been going on, constant pain for four days and also black stools. She has history of GI bleed. She had endoscopy that showed peptic ulcer disease. Last endoscopy was about two years ago. The patient also has been complaining of recurrent vomiting as well. Denies hematemesis, but does have black stool, which is watery as well. The patient states that she has been offered to do partial gastrectomy for bleeding ulcer, but she currently has refused to do it. PAST MEDICAL HISTORY: Peptic ulcer disease. PAST SURGICAL HISTORY: None. ALLERGIES: NSAIDs make her ulcer bleed. SOCIAL HISTORY: Denies smoking, alcohol, or illicit drugs. MEDICATIONS: None. FAMILY HISTORY: Noncontributory. REVIEW OF SYSTEMS: HEENT: Denies headaches. RESPIRATORY: No shortness of breath or cough. CARDIOVASCULAR: Denies chest pain. GASTROINTESTINAL: GENITOURINARY: The patient also complains of suprapubic area tenderness for the past couple of days. Normal menses. EXTREMITIES: Denies pain in the lower extremities. CENTRAL NERVOUS SYSTEM: Denies change in vision or speech pattern. PHYSICAL EXAMINATION: VITAL SIGNS: Temperature 97.8, pulse rate . HEENT: PERRLA. NECK: Supple. CHEST: Clear to auscultation. CARDIOVASCULAR: Regular rate and rhythm. No murmurs or extra sounds GASTROINTESTINAL: Epigastric tenderness. No rebound. Abdomen is soft. No organomegaly. EXTREMITIES: No edema. Reflexes on both sides are equal. Moves all four extremities. NEUROLOGIC: Sensory intact to light touch. Reflexes are equal on both sides. LABORATORY DATA: , hemoglobin 13.5, and platelets 202. Sodium 137, potassium 3.4, BUN of 8, and creatinine 0.7. ASSESSMENT AND PLAN: History of GI bleed endoscopy, most likely. The patient has also had low potassium and suprapubic tenderness and possible ovarian cyst. Dr. Abdi, Dr. Bennett, and Dr. Ordoñez to see the patient for the above-mentioned diagnoses and treatment. Ali [address] Powell DR: CHRISTINE JOB#: [id number] CC:
--- NOTE | 2018-07-25 10:45 | NUR ---
NURSE NOTES: NPO MAINTAINED. TO GI LAB FOR EGD VIA FLOYD.
--- NOTE | 2018-07-25 10:53 | Diagnostic Imaging Report ---
Indication:Lower abdominal and pelvic pain Technique: Grayscale and duplex Doppler imaging of the pelvis performed utilizing a transabdominal and endovaginal scan. Comparison: None Findings: The size, contour, and configuration of the uterus is within normal limits. The endometrium is uniformly echogenic and normal in thickness. Endometrium measures between 7 and 8 mm. There is a tiny cystic focus within the fundal portion of the endometrium, nonspecific. Multiple cervical cysts noted consistent system with nabothian cysts. The ovaries appear normal bilaterally with good dopplerable blood flow. Bilateral cysts are noted likely follicular cysts. The largest of these is approximately 2.3 cm noted within the left ovary. There is no significant free fluid identified. Uterus measures 9.3 x 6.6 x 4.3 cm. Right ovary 2.5 x 2.7 x 1.7 cm. Left ovary 3.4 x 3.5 x 1.77 cm. IMPRESSION: Tiny cystic focus in the fundal portion of the endometrium nonspecific. This could be a small focus of retained blood. A small polyp or other cystic focus not excluded. Bilateral ovarian cysts likely physiologic. Follow-up suggested at 6 weeks.
[2018-07-25] MEDS ORDERED: Propofol 200mg/20ml IV ONE (11:00)
[2018-07-25] MEDS ORDERED: Lidocaine 1% MPF 10mg/ml 5ml ONE (11:00)
[2018-07-25] MEDS ORDERED: NS 500ML IVPB ONE (11:04)
--- NOTE | 2018-07-25 11:17 | Pre-Procedure Note/Attestation ---
Pre-Procedure Note/Attestation Complete Prior to Procedure Planned Procedure: not applicable Procedure Narrative: gib Indications for Procedure Pre-Operative Diagnosis: abd pain Attestation I attest that I discussed the nature of the procedure; its benefits; risks and complications; and alternatives (and the risks and benefits of such alternatives ), prior to the procedure, with the patient (or the patient's legal healthcare representative). I attest that, if there was a reasonable possibility of needing a blood transfusion, the patient (or the patient's legal healthcare representative) was given the [facility] standardized written summary, pursuant to the Damir Renita Blood Safety Act ([place] Health and Safety Code # 1645, as amended). I attest that I re-evaluated the patient just prior to the surgery and that there has been no change in the patient's H&P, except as documented below: Pernell Ordoñez MD Jul 25, 2018 11:17
--- NOTE | 2018-07-25 11:25 | Endoscopy Procedure Note ---
Endoscopy Procedure Note General Indication for Procedure: gib Procedures Performed: EGD Operative Findings/Diagnosis: du Specimen: yes Pt Tolerated Procedure Well: Yes Estimated Blood Loss: none Anesthesia Anesthesiologist: glenis Anesthesia: MAC Inserted Devices Implant(s) used?: No GI Core Measures 50 yrs or older w/o bx or poly: Not Applicable 10yrs. F/U not recommended: Not Applicable Pernell Ordoñez MD Jul 25, 2018 11:25
[2018-07-25] MEDS ORDERED: fentaNYL 100 mcg/2 mL IV ONE (11:44)
--- NOTE | 2018-07-25 11:45 | Consultation ---
DATE OF CONSULTATION: 07/25/2018 PAIN MANAGEMENT CONSULTATION CONSULTING PHYSICIAN: Joan Abdi M.D. REFERRING PHYSICIAN: Cristine Powell M.D. PHYSICIAN ELECTRICAL CONTROL ASSEMBLER: Janice Watts CHIEF COMPLAINT: Abdominal pain. HISTORY OF PRESENT ILLNESS: The patient is a 38-year-old female, who is being seen on the Med/Surg floor of [facility] for initial pain management consultation. The patient has been admitted under the care of Dr. Powell due to abdominal pain. Being seen by family program specialist, who feels the patient has peptic ulcer disease as well as an incidental left ovarian cyst and is being seen by a lodging manager, who recommended pelvic ultrasound, status post EGD as well. Per the family program specialist, the patient explained that she has been having of pain for, which is constant, acute, rating at 8/10, reduced on the morphine 2 mg IV every four hours as needed to 0/10. At this time, she describes the pain as sharp, which increased with eating and reduced again with medication. We were consulted so that the patient would have adequate pain control while here in the hospital. PAST MEDICAL HISTORY: Denies. PAST SURGICAL HISTORY: Denies. SOCIAL HISTORY: Denies smoking tobacco, drinking alcohol, or IV drug abuse. ALLERGIES: No known drug allergies. MEDICATIONS: No medications taken as an outpatient. REVIEW OF SYSTEMS: Denies rash, fever, chills, sweating, dizziness, drowsiness, blurred vision, sore throat, or change in weight. No shortness of breath or chest pain. No nausea, vomiting, diarrhea, or blood in the stool or urine. No bowel or bladder incontinence. No dysuria. She is complaining of abdominal pain. PHYSICAL EXAMINATION: GENERAL: Alert, awake, and oriented x3. VITAL SIGNS: Blood pressure 111/64, heart rate is 59, oxygen saturation 99%, respiratory rate 19, and temperature 98.4 degrees Fahrenheit. HEENT: PERRLA. NECK: Range of motion is full in all directions. No tenderness to paracervical muscles. No adenopathy. LUNGS: Clear bilaterally. HEART: S1 and S2 regular. ABDOMEN: Tenderness to palpation. BACK: Range of motion is decreased in flexion and extension. No tenderness to paraspinal muscles or trapezius or rhomboid muscles. EXTREMITIES: Upper extremity and lower extremity range of motion is full in all directions. No cyanosis. No clubbing. No edema. Sensory is intact. Reflexes are not obtainable. No adenopathy. ASSESSMENT AND PLAN: This is a 38-year-old female with abdominal and pelvic pain, peptic ulcer disease, ovarian cyst. The patient will be continued on morphine 2 mg IV every four hours as needed for severe pain. The patient was discussed with Dr. Abdi and Dr. Abdi concurred. We will follow the patient. Thank you very much for the courtesy of this consultation. Joan Abdi M.D. CUBA Watts DR: ANNIE JOB#: [id number] CC:
--- NOTE | 2018-07-25 12:45 | Procedure Note ---
DATE OF PROCEDURE: 07/25/2018 SURGEON: Pernell Ordoñez M.D. ANESTHESIA: Per Dr. Chisholm. PROCEDURE: Upper endoscopy with biopsy. INSTRUMENT: Olympus adult flexible upper endoscope. INDICATION: GI bleeding. REASON FOR PROCEDURE: The procedure, risks, benefits, and possible consequences, including hemorrhage, aspiration, perforation and infection, and alternative treatments, were explained to the patient/legal guardian by Dr. Pernell Ordoñez and the patient/legal guardian understood and accepted these risks. DESCRIPTION OF PROCEDURE: After informed consent was obtained and the patient was adequately sedated, Olympus upper endoscope was advanced from the mouth to the second portion of the duodenum and retroflexion was performed in the stomach. The patient has a shallow duodenal ulcer. Some duodenitis. Some gastritis. Random biopsy from antrum and body was obtained to rule out H. pylori infection. At this time, the upper endoscope was retrieved and procedure was terminated. SUMMARY OF FINDINGS: 1. Duodenal ulcer, shallow. 2. Gastritis, status post biopsy. RECOMMENDATIONS: 1. Follow up biopsy results and treat accordingly. 2. Continue on PPI. 3. H. pylori serology and biopsy results were back. I want to thank, Dr. Powell, for this kind referral. Pernell Ordoñez M.D. DR: JERALD JOB#: [id number] CC: Cristine Powell M.D.; Fax#: [phone]
--- NOTE | 2018-07-25 12:48 | NUR ---
NURSE NOTES: REC'D FROM PACU SP EGD. AWAKE ALERT. IV INFUSING. V/S TAKEN. IN NO APPARENT DISTRESS.
[2018-07-25] MEDS ORDERED: OMEPRAZOLE40 M1 ORAL (12:52)
--- NOTE | 2018-07-25 14:14 | NUR ---
NURSE NOTES: PELVIC U/S REPORT FAXED TO DR Chandler MERLOS OFFICE.NEED OK FOR DISCHARGE ORDER. LEFT MESSAGE TO RETURN CALL
--- NOTE | 2018-07-25 14:22 | NUR ---
NURSE NOTES: PELVIC U/S REPORT CALLED TO DR Chandler MERLOS . WITH ORDER. STATES OK TO DISCHARGE PT.
--- NOTE | 2018-07-25 17:06 | NUR ---
NURSE NOTES: DISCHARGED HOME ACCPD BY UNCLE IN STABLE CONDITION. DC INSTRUCTIONS AND RX GIVEN.
[2018-07-25] MEDS ORDERED: Tubing IV Secondary IV ONE (17:19)
--- NOTE | 2018-07-25 18:15 | Anethesia Preoperative Eval ---
Anesthesia Pre-op PMH/ROS General Date of Evaluation: Jul 25, 2018 Time of Evaluation: 10:52 Anesthesiologist: glenis ASA Score: ASA 2 Mallampati Score Class I : Soft palate, uvula, fauces, pillars visible Class II: Soft palate, uvula, fauces visible Class III: Soft palate, base of uvula visible Class IV: Only hard plate visible Mallampati Classification: Class II Surgeon: bertrand Diagnosis: abdominal pain Surgical Procedure: egd Anesthesia History: none Social History: smoking - nonsmoker Family History: no anesthesia problems Allergies: Coded Allergies: No Known Allergies (Unverified , 09/09/17) Medications: see eMAR Patient NPO?: Yes Past Medical History Gastrointestinal/Genitourinary: Reports: other - ulcer, gi bleed Anesthesia Pre-op Phys. Exam Physician Exam Last Vital Signs Date Time Temp Pulse Resp B/P (MAP) Pulse Ox O2 Delivery O2 Flow Rate FiO2 07/25/18 16:00 98.1 65 18 107/72 (84) 99 07/25/18 11:58 Nasal Cannula 2 Constitutional: NAD Neurologic: CN 2-12 intact Cardiovascular: RRR Respiratory: CTA Gastrointestinal: S/NT/ND Airway Exam Mallampati Score: Class II MO: full Neck: supple TMD: 2fb ROM: full Anesthesia Pre-op A/P Risk Assessment & Plan Assessment: asa2 Plan: mac Status Change Before Surgery: No Pre-Antibiotics Drug: Latoya Rees MD Jul 25, 2018 18:15
--- NOTE | 2018-07-25 18:17 | Immediate Post-Op Evaluation ---
Immediate Post-Op Evalulation Immediate Post-Op Evalulation Procedure: egd/bx Date of Evaluation: Jul 25, 2018 Time of Evaluation: 11:44 IV Fluids: 150ml 0.9ns Blood Products: none Estimated Blood Loss: negligible Blood Pressure Systolic: 117 Blood Pressure Diastolic: 71 Pulse Rate: 61 Respiratory Rate: 18 O2 Sat by Pulse Oximetry: 100 Temperature (Fahrenheit): 98.2 Pain Score (1-10): 0 Nausea: No Vomiting: No Complications none Patient Status: awake, reacts, patent Hydration Status: adequate Drug: Latoya Rees MD Jul 25, 2018 18:17
--- NOTE | 2018-07-25 18:18 | 48 Hour Post Anesthesia Eval ---
Post Anesthesia Evaluation Procedure: egd/bx Date of Evaluation: Jul 25, 2018 Time of Evaluation: 11:46 Blood Pressure Systolic: 118 0: 89 Pulse Rate: 61 Respiratory Rate: 18 Temperature (Fahrenheit): 98.2 O2 Sat by Pulse Oximetry: 100 Airway: patent Nausea: No Vomiting: No Pain Intensity: 0 Hydration Status: adequate Cardiopulmonary Status: stable Mental Status/LOC: patient returned to baseline Post-Anesthesia Complications: none Follow-up care needed: N/A Latoya Eastman MD Jul 25, 2018 18:18
--- NOTE | 2018-07-26 10:35 | Discharge Summary ---
Discharge Summary Discharge Summary _ DATE OF ADMISSION: 07/23/2018 DATE OF DISCHARGE: 07/25/2018 DISCHARGED BY: Dr. Cristine Engel CONSULTANTS: Dr. Gloria Gilliam BRIEF HOSPITAL COURSE: Patient is a 38-year-old female, with history of ulcer, presented to ED complaining of abdominal pain for the past 3 days and with black stools. Patient stated she had similar symptoms in the past and she was told it was due to bacteremia. She complained of abdominal pain for 2 days, located at bilateral lower quadrants and described to be sharp pain. She denied any abdominal surgeries in the past. Denied any vomiting or fever. She reported recent visit to [facility] on June 2018 and had taken some pills for ovulation which caused her increased lower pelvic pain. She reported multiple episodes of epigastric pain which was not resolved with [id number] medications. On evaluation at the ED, vital signs were stable. Blood work did not show any leukocytosis, hemoglobin was 13.5, hematocrit 40. LFTs and lipase were normal. HCG was negative. CT of the abdomen and pelvis showed a 2.2 cm dominant follicle or small cyst on the left ovary. She was then admitted for evaluation of abdominal pain. County Treasurer was consulted. According to patient, she took Clomid on cycle day 2 (LMP 06/26) for 5 days, however, did not have intercourse after ovulation induction. Her pain began on 07/03 or 07/04, was severe at times, prompting her to go to ER. She was seen at [facility] emergency department and was diagnosed and treated for cervicitis, given ceftriaxone and azithromycin and was discharged home. She reported lower abdominal pain improved however developed upper GI pain prompted her to go to [facility] ER. She had an ultrasound done at [facility] on 07/13/18 was normal. She again underwent transvaginal ultrasound. Findings showed cystic focus on the fundal portion of the endometrium, could be a small focus of retained blood. There was presence of bilateral ovarian cysts, likely physiologic. Recommend repeat ultrasound at 6 weeks. GI was consulted. She had reported history of ulcer in 2014 with H pylori, status post treatment. On 07/25/2018, she underwent upper endoscopy with biopsy. Findings showed gastritis and a shallow duodenal ulcer. She was recommended to continue proton pump inhibitors. Diet was resumed. Hemoglobin was stable. She was tolerating diet well. 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 FINAL DIAGNOSES: Left ovarian cyst, likely dominant follicle Duodenal ulcer Gastritis Status post upper endoscopy with biopsy on 07/25/2018 DISPOSITION: Patient was discharged home. DISCHARGE MEDICATIONS: Refer to Discharge Medication List. DISCHARGE INSTRUCTIONS: Follow-up with GI and gynecology in a week. I have been assigned to dictate discharge summary on this account, and I was not involved in the patient's management. Adrianne Mcdonough NP Jul 26, 2018 10:35
--- NOTE | 2018-07-28 11:59 | NUR ---
CASE MANAGEMENT: CM review and clinical information (face sheet/ ER MD Note/ H&P/oper report/ DC instructions) faxed to [facility] @ [phone]. AUTH#: [id number]. Addendum: 07/28/18 at 1205 by LUIS GERARD CM CM review and clinical information also faxed to [facility] @ [phone]. TRACK#: [id number]
== END 2018-07-25 17:20 | disposition home or self-care (01) | DRG 249 ==
LOC: EDBD 20:21 → EMR 21:06 → 3E 22:05 → EDBEDREQ 23:48
PROC: 0DB78ZX Excision of Stomach, Pylorus, Via Natural or Artificial Opening Endoscopic, Diagnostic (ICD-10-PCS; 2018-07-25)
PROC: 0DB68ZX Excision of Stomach, Via Natural or Artificial Opening Endoscopic, Diagnostic (ICD-10-PCS; principal; 2018-07-25 11:19)
DX: K52.9 Noninfective gastroenteritis and colitis, unspecified (principal); K26.9 Duodenal ulcer, unspecified as acute or chronic, without hemorrhage or perforation; N83.292 Other ovarian cyst, left side; K29.70 Gastritis, unspecified, without bleeding
CPT/HCPCS: 36415; 74177; 76830; 76856; 80053; 80307; 81003; 81025; 83690; 85025; 85610; 85730; 86850; 86900; 86901; 94003; 94150; 96374; 96375; 99285; J2405